=== PATIENT | male | born 1990 | race Caucasian/White ===

== ENCOUNTER 2020-06-05 09:21 | Emergency (ER) | payer MEDICAID ==
[~2020-06-05] VITALS: Ht 180.3 cm; Wt 61.4 kg
[~2020-06-05 09:21] MED LIST: RISP1TAB48 PO
[2020-06-05 09:36] VITALS: BP 131/97
[2020-06-05] MEDS ORDERED: CARBAMIDE PEROXIDE 6.5% 15 ML OTIC SOLUTION AD ONE (10:00)
== END 2020-06-05 11:55 | disposition home or self-care (01) ==
LOC: EMS 09:21
DX: T16.1XXA Foreign body in right ear, initial encounter (principal); F12.90 Cannabis use, unspecified, uncomplicated; W45.8XXA Other foreign body or object entering through skin, initial encounter; Y93.89 Activity, other specified; Y92.89 Other specified places as the place of occurrence of the external cause; Y99.8 Other external cause status
CPT/HCPCS: Z7502; Z7610